=== PATIENT | female | born 1970 | race Caucasian/White ===

== ENCOUNTER 2018-10-12 18:33 | Inpatient (IN) | payer BC, OTHER ==
--- OUTSIDE RECORDS SUMMARY | 2018-10-12 18:35 | XMS REPORT ---
:1970 Author Organization [employer] Care Team Providers Name Role Phone Cathy, Thomas Provider Role Unavailable Allergies, Adverse Reactions, Alerts Substance Reaction Event Type N.K.D.A. Info Not Available Non Drug Allergy Problems Problem Type Condition Code Onset Dates Condition Status Assessment Mild intermittent asthma with acute J45.21 Active exacerbation Problem Loss of hair L65.9 Active Problem Seasonal allergic rhinitis, J30.2 Active unspecified trigger Assessment Seasonal allergic rhinitis, J30.2 Active unspecified trigger Problem Hematuria R31.9 Active Problem Fibromyalgia M79.7 Active Problem GERD (gastroesophageal reflux K21.9 Active disease) Problem Unspecified abnormal finding in R89.9 Active specimens from other organs, systems and tissues Problem Mild intermittent asthma with acute J45.21 Active exacerbation Problem Polyarthralgia M25.50 Active Problem Malaise and fatigue R53.81 Active Medications Medication Code Code Instructions Start End Status Dosage System Date Date Neurontin [facility] [address]-26 100 MG Orally Active 1 capsule Twice a day Acetaminophen- [facility] 44432007314 300-30 MG Active 1 tablet Codeine #3 Orally every 6 as needed hrs Cymbalta [facility] 97649803479 30 MG Orally Active 1 capsule Once a day Claritin-D 12 ND 85443289081 5-120 MG Orally December 11, January 10, Active 1 tablet Hour every 12 hrs 2017 2017 as needed ProAir [facility] 24312712849 108 (90 Base) December 11, Active 2 puffs as RespiClick MCG/ACT 2018 needed Inhalation every 6 hrs atarax NDC 0 25mg Po QID prn Active 1 Flonase ND 14154883768 50 MCG/ACT Active 1 spray in Nasally Once a each day nostril Levaquin ND 45926116668 250 MG Orally Active 2 tablets Once a day PredniSONE ND 95858836236 10 MG Orally December 11, December 16, Active 1 tablet bid 2017 2017 Results No Known Results Summary Purpose eClinicalWorks Submission
--- OUTSIDE RECORDS SUMMARY | 2018-10-12 18:36 | XMS REPORT ---
:1970 Author Organization [employer] Care Team Providers Name Role Phone Cathy, Thomas Provider Role Unavailable Allergies No Known Allergies Problems Problem Type Condition Code Onset Dates Condition Status Problem GERD (gastroesophageal reflux K21.9 Active disease) Problem Loss of hair L65.9 Active Problem Seasonal allergic rhinitis, J30.2 Active unspecified trigger Problem Body mass index (BMI) of 34.0-34.9 Z68.34 Active in adult Problem Intractable migraine without aura G43.019 Active and without status migrainosus Problem Sleep disturbance G47.9 Active Problem Unspecified abnormal finding in R89.9 Active specimens from other organs, systems and tissues Problem Mild intermittent asthma with acute J45.21 Active exacerbation Problem Seasonal allergies J30.2 Active Problem Seasonal allergic conjunctivitis H10.45 Active Assessment Fibromyalgia M79.7 Active Assessment Sleep disturbance G47.9 Active Assessment Body mass index (BMI) of 34.0-34.9 Z68.34 Active in adult Assessment Seasonal allergies J30.2 Active Problem Malaise and fatigue R53.81 Active Problem Polyarthralgia M25.50 Active Assessment Intractable migraine without aura G43.019 Active and without status migrainosus Problem Fibromyalgia M79.7 Active Problem Hematuria R31.9 Active Medications Medication Code Code Instructions Start End Status Dosage System Date Date Neurontin [facility] 45451855335 100 MG Orally February Active 1 capsule Twice a day 2017 Sumatriptan ND 54609320402 50 MG Orally March 01, Active 1 tablet Succinate Once a day 2018 as needed Flonase ND 48527165851 50 MCG/ACT Active 1 spray in Nasally Once a each day nostril ProAir [facility] 17438677980 108 (90 Base) December 11, Active 2 puffs as RespiClick MCG/ACT 2018 needed Inhalation every 6 hrs Montelukast ND 41639301635 10 MG Orally December 20, Active 1 tablet Sodium Once a day 2018 in the evening Lyrica ND 56523899537 100 MG Orally March 01, Active 1 capsule Twice a day 2017 Acetaminophen-C [facility] 13391272158 300-30 MG Active 1 tablet odeine #3 Orally every 6 as needed hrs Levaquin ND 57189340043 250 MG Orally February Active 2 tablets Once a day 2017 atarax ND 0 25mg Po QID prn Inactive 1 Fiorinal [facility] 78000795090 50-325-40 MG March 01Jun 29, Active 1 capsule Orally every 4 2017 2017 as needed hrs Cymbalta [facility] 46700069633 30 MG Orally Active 1 capsule Once a day Results No Known Results Summary Purpose eClinicalWorks Submission
--- OUTSIDE RECORDS SUMMARY | 2018-10-12 18:36 | XMS REPORT ---
:1970 Author Organization [employer] Care Team Providers Name Role Phone CathyThomas Provider Role Unavailable Allergies, Adverse Reactions, Alerts Substance Reaction Event Type N.K.D.A. 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21 Active exacerbation Problem Loss of hair L65.9 Active Problem Unspecified abnormal finding in R89.9 Active specimens from other organs, systems and tissues Problem Hematuria R31.9 Active Problem Malaise and fatigue R53.81 Active Medications Medication Code Code Instructions Start End Status Dosage System Date Date ProAir [facility] [id number] 108 (90 Base) December 11, Active 2 puffs as RespiClick MCG/ACT 2018 needed Inhalation every 6 hrs Cymbalta [facility] 92544638976 30 MG Orally Active 1 capsule Once a day Sumatriptan [facility] 73662196182 50 MG Orally March 01, Active 1 tablet Succinate Once a day 2018 as needed Fiorinal [facility] 00760851103 50-325-40 MG March 01, Jun 29, Active 1 capsule Orally every 4 2017 2018 as needed hrs Flonase [facility] 46778008955 50 MCG/ACT Active 1 spray in Nasally Once a each day nostril Acetaminophen-C [facility] 90392821782 300-30 MG Orally Active 1 tablet odeine #3 every 6 hrs as needed Lyrica [facility] 59677870829 100 MG Orally March 01, Active 1 capsule Twice a day 2017 Montelukast [facility] 66292464783 10 MG Orally December 20, Active 1 tablet Sodium Once a day 2018 in the evening Results No Known Results Summary Purpose eClinicalWorks Submission
--- OUTSIDE RECORDS SUMMARY | 2018-10-12 18:36 | XMS REPORT ---
:1970 Author Organization [employer]Works Care Team Providers Name Role Phone Thomas Morgan Provider Role Unavailable Allergies No Known Allergies Problems Problem Type Condition Code Onset Dates Condition Status Problem Loss of hair L65.9 Active Problem Seasonal allergic rhinitis, J30.2 Active unspecified trigger Problem Hematuria R31.9 Active Problem Fibromyalgia M79.7 Active Problem GERD (gastroesophageal reflux K21.9 Active disease) Problem Unspecified abnormal finding in R89.9 Active specimens from other organs, systems and tissues Problem Mild intermittent asthma with acute J45.21 Active exacerbation Problem Polyarthralgia M25.50 Active Problem Malaise and fatigue R53.81 Active Medications No Known Medications Results No Known Results Summary Purpose eClinicalWorks Submission
--- OUTSIDE RECORDS SUMMARY | 2018-10-12 18:36 | XMS REPORT ---
:1970 Author Organization [employer]Works Care Team Providers Name Role Phone Thomas Morgan Provider Role Unavailable Allergies, Adverse Reactions, Alerts Substance Reaction Event Type N.K.D.A. 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 Active Problem Insulin resistance E88.81 Active Problem Intractable migraine without aura G43.019 Active and without status migrainosus Problem Seasonal allergic conjunctivitis H10.45 Active Problem Seasonal allergic rhinitis, J30.2 Active unspecified trigger Assessment Fibromyalgia M79.7 Active Assessment History of gastric surgery Z98.890 Active Problem GERD (gastroesophageal reflux K21.9 Active disease) Problem Mild intermittent asthma with acute J45.21 Active exacerbation Problem Loss of hair L65.9 Active Problem Unspecified abnormal finding in R89.9 Active specimens from other organs, systems and tissues Problem Hematuria R31.9 Active Problem Malaise and fatigue R53.81 Active Medications Medication Code Code Instructions Start End Status Dosage System Date Date Sumatriptan ND 51412156369 50 MG Orally March 01, Active 1 tablet as Succinate Once a day 2018 needed ProAir ND 15694672948 108 (90 Base) December 11, Active 2 puffs as RespiClick MCG/ACT 2018 needed Inhalation every 6 hrs Fluconazole NDC 14583483373 150 MG Orally Oct 02, Oct 03, Active 1 tablet Once a day 2018 2019 Lyrica ND 86835109604 100 Active TAKE 1 CAPSULE BY MOUTH TWICE DAILY Bariatric ND 87371348836 - Orally Sep 18, Active as directed Multivitamins/I 2019 cornelio Flonase ND 57741463357 50 MCG/ACT Active 1 spray in Nasally Once a each day nostril Cymbalta [facility] 92058947483 30 MG Orally Active 3 capsules Once a day Lyrica [facility] 10313013475 100 MG Orally March 01, Active 1 capsule Twice a day 2017 Acetaminophen-C [facility] 45072726919 300-30 MG Active 1 tablet as odeine #3 Orally every 6 needed hrs Montelukast [facility] 34074980359 10 MG Orally December 20, Active 1 tablet in Sodium Once a day 2017 the evening Results No Known Results Summary Purpose eClinicalWorks Submission
--- OUTSIDE RECORDS SUMMARY | 2018-10-12 18:36 | XMS REPORT ---
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 Active Problem Insulin resistance E88.81 Active Problem Intractable migraine without aura G43.019 Active and without status migrainosus Problem Seasonal allergic conjunctivitis H10.45 Active Problem Seasonal allergic rhinitis, J30.2 Active unspecified trigger Assessment Fibromyalgia M79.7 Active Problem GERD (gastroesophageal reflux K21.9 Active disease) Problem Mild intermittent asthma with acute J45.21 Active exacerbation Problem Loss of hair L65.9 Active Problem Unspecified abnormal finding in R89.9 Active specimens from other organs, systems and tissues Problem Hematuria R31.9 Active Problem Malaise and fatigue R53.81 Active Medications Medication Code System Code Instructions Start End Date Status Dosage Date Cymbalta [facility] 62646382002 30 MG Orally Active 3 capsules Once a day Results No Known Results Summary Purpose eClinicalWorks Submission
--- OUTSIDE RECORDS SUMMARY | 2018-10-12 18:36 | XMS REPORT ---
:1970 Author Organization e[employer]Works Care Team Providers Name Role Phone Thomas Morgan Provider Role Unavailable Allergies No Known Allergies Problems Problem Type Condition Code Onset Dates Condition Status Problem Mild intermittent asthma with acute J45.21 Active exacerbation Problem Malaise and fatigue R53.81 Active Problem Unspecified abnormal finding in R89.9 Active specimens from other organs, systems and tissues Assessment Seasonal allergic rhinitis, J30.2 Active unspecified trigger Problem Loss of hair L65.9 Active Problem Seasonal allergic rhinitis, J30.2 Active unspecified trigger Problem Seasonal allergic conjunctivitis H10.45 Active Problem Fibromyalgia M79.7 Active Problem Polyarthralgia M25.50 Active Problem GERD (gastroesophageal reflux K21.9 Active disease) Problem Hematuria R31.9 Active Medications Medication Code Code Instructions Start End Status Dosage System Date Date ProAir [facility] 48501436392 108 (90 Base) December 11, Active 2 puffs as RespiClick MCG/ACT 2018 needed Inhalation every 6 hrs Montelukast ND 69859554348 10 MG Orally December 20, Active 1 tablet Sodium Once a day 2017 in the evening Cymbalta ND 49711954335 30 MG Orally Active 1 capsule Once a day Levaquin ND 98713717164 250 MG Orally Active 2 tablets Once a day Flonase ND 68549205578 50 MCG/ACT Active 1 spray in Nasally Once a each day nostril Acetaminophen-C ND 58574772135 300-30 MG Orally Active 1 tablet odeine #3 every 6 hrs as needed atarax NDC 0 25mg Po QID prn Active 1 Neurontin ND 68398887092 100 MG Orally Active 1 capsule Twice a day Claritin-D 12 ND 83059541327 5-120 MG Orally December 11, January 10, Active 1 tablet Hour every 12 hrs 2017 2017 as needed Results No Known Results Summary Purpose eClinicalWorks Submission
[2018-10-12 19:17] LABS: Absolute Lymphocytes (CBC) 2.3 K/uL (0.7-4.9); Absolute Neutrophil 6.5 K/uL (1.8-8.0); Eosinophils % 2.4 % (0-4.4); Hematocrit 40.1 % (36.0-45.0); Lymphocytes % 22.9 % (15.3-44.8); MPV 8.3 fL (7.6-11.3); Monocytes % 9.6 % (3.3-12.3)
[2018-10-12 19:18] LABS: Protime INR 1.21
[2018-10-12 19:37] LABS: ALT/SGPT 24 U/L (12-78); AST/SGOT 15 U/L (15-37); Albumin 3.7 g/dL (3.4-5.0); Alkaline Phosphatase 79 U/L (45-117); BUN Blood Urea Nitrogen 11 mg/dL (7-18); Bicarbonate 24 mmol/L (21-32); Bilirubin Direct 0.1 mg/dL (0-0.2); Bilirubin Total 0.4 mg/dL (0.2-1.0); Glucose Level 95 mg/dL (74-106); Magnesium 2.2 mg/dL (1.8-2.4); NT PRO-BNP 45 pg/mL (<125); Potassium 3.7 mmol/L (3.5-5.1); Protein, Total 7.8 g/dL (6.4-8.2); Sodium Level 141 mmol/L (136-145); Troponin (Emerg Dept Use Only) < 0.02 ng/mL (0.0-0.045)
[2018-10-12] MEDS ORDERED: ONDANSETRON 4 MG/2 ML VIAL ONE (19:39)
--- NOTE | 2018-10-12 20:24 | RAD REPORT ---
EXAM DESCRIPTION: Bethanie Single View10/12/2018 7:57 pm CLINICAL HISTORY: Abdominal pain COMPARISON: April 2018 FINDINGS: The lungs appear clear of acute infiltrate. The heart is normal size IMPRESSION: No acute abnormalities displayed
[2018-10-12 20:59] LABS: Urine Blood 1+ (NEG); Urine Glucose NEGATIVE (NEG); Urine Protein NEGATIVE (NEG); Urine Specific Gravity 1.015 (1.005-1.030)
--- NOTE | 2018-10-12 22:27 | EDPHYS ---
Physician Documentation [facility] Name: Mary Lou Schilling Age: 48 yrs Sex: Female : 1970 Arrival Date: 10/12/2018 Time: 18:36 Bed 20 Private MD: Thomas Morgan ED Physician Joelle Morelos HPI: 10/12 21:49 This 48 yrs old Female presents to ER via Ambulatory with complaints of Upper pm1 Abd Pain, Left Shoulder Pain. 21:49 The patient presents with abdominal pain in the epigastric area. Onset: The pm1 symptoms/episode began/occurred 2 day(s) ago. The symptoms do not radiate. Associated signs and symptoms: Pertinent negatives: nausea, vomiting, and diarrhea, chest pain, constipation, dysuria, fever, shortness of breath. The symptoms are described as crampy. Modifying factors: The symptoms are alleviated by nothing, the symptoms are aggravated by food. The patient has not experienced similar symptoms in the past. The patient has been recently seen by a physician: 3 week(s) ago, Had gastric sleeve placement in [place]. 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 - Social history:: Smoking status: Patient/guardian denies using tobacco. - Ebola Screening: : Patient negative for fever greater than or equal to 101.5 degrees Fahrenheit, and additional compatible Ebola Virus Disease symptoms Patient denies exposure to infectious person Patient denies travel to an Ebola-affected area in the 21 days before illness onset No symptoms or risks identified at this time. ROS: 21:49 Constitutional: Negative for fever, chills, and weight loss, Eyes: Negative for injury, pm1 pain, redness, and discharge, ENT: Negative for injury, pain, and discharge, Neck: Negative for injury, pain, and swelling, Cardiovascular: Negative for chest pain, palpitations, and edema, Respiratory: Negative for shortness of breath, cough, wheezing, and pleuritic chest pain. 21:49 Back: Negative for injury and pain, : Negative for injury, bleeding, discharge, and swelling, MS/Extremity: Negative for injury and deformity, Skin: Negative for injury, rash, and discoloration, Neuro: Negative for headache, weakness, numbness, tingling, and seizure. 21:49 Abdomen/GI: Positive for abdominal pain, Negative for nausea, vomiting, and diarrhea. 21:49 MS/extremity: Positive for pain, of the left scapular area. pm1 Exam: 21:49 Constitutional: This is a well developed, well nourished patient who is awake, alert, pm1 and in no acute distress. Head/Face: Normocephalic, atraumatic. Eyes: Pupils equal round and reactive to light, extra-ocular motions intact. Lids and lashes normal. Conjunctiva and sclera are non-icteric and not injected. Cornea within normal limits. Periorbital areas with no swelling, redness, or edema. ENT: Nares patent. No nasal discharge, no septal abnormalities noted. Tympanic membranes are normal and external auditory canals are clear. Oropharynx with no redness, swelling, or masses, exudates, or evidence of obstruction, uvula midline. Mucous membranes moist. Neck: Trachea midline, no thyromegaly or masses palpated, and no cervical lymphadenopathy. Supple, full range of motion without nuchal rigidity, or vertebral point tenderness. No Meningismus. Chest/axilla: Normal chest wall appearance and motion. Nontender with no deformity. No lesions are appreciated. Cardiovascular: Regular rate and rhythm with a normal S1 and S2. No gallops, murmurs, or rubs. Normal PMI, no JVD. No pulse deficits. Respiratory: Lungs have equal breath sounds bilaterally, clear to auscultation and percussion. No rales, rhonchi or wheezes noted. No increased work of breathing, no retractions or nasal flaring. Abdomen/GI: Soft, non-tender, with normal bowel sounds. No distension or tympany. No guarding or rebound. No evidence of tenderness throughout. Back: No spinal tenderness. No costovertebral tenderness. Full range of motion. Skin: Warm, dry with normal turgor. Normal color with no rashes, no lesions, and no evidence of cellulitis. MS/ Extremity: Pulses equal, no cyanosis. Neurovascular intact. Full, normal range of motion. 21:49 Neuro: Orientation: is normal, Motor: is normal, moves all fours, Sensation: is normal, no obvious gross deficits, Gait: is steady, at a normal pace, without difficulty. Vital Signs: 19:04 Weight 79.38 kg; Height 5 ft. 5 in. (165.10 cm); bp 19:15 BP 138 / 85; Pulse 100; Resp 17; Temp 98.6; Pulse Ox 99% ; Pain 7/10; rr5 19:45 BP 115 / 64; Pulse 94; Resp 16; Temp 98.6; Pulse Ox 99% ; rr5 20:35 BP 96 / 52; Pulse 90; Resp 16; Pulse Ox 100% ; rr5 21:50 BP 116 / 68; Pulse 93; Resp 19; Pulse Ox 99% ; rr5 22:25 BP 122 / 70; Pulse 99; Resp 16; Pulse Ox 99% ; rr5 23:55 BP 125 / 62; Pulse 98; Resp 17; Pulse Ox 100% ; rr5 19:04 Body Mass Index 29.12 (79.38 kg, 165.10 cm) bp MDM: 18:42 Patient medically screened. pm1 21:52 Data reviewed: vital signs. Data interpreted: Pulse oximetry: on room air is 99 %. pm1 Interpretation: normal. 22:28 Physician consultation: Eligio Hays MD was called at 22:20, was contacted at 22:20, pm1 regarding consult, patient's condition, after a discussion of the case, a recommendation for transfer for higher level of care is made, recommends transfer to bariatric surgeon. Intramural hematoma is postoperative complication that requires evaluation by bariatric surgeon. 22:54 Physician consultation: Bariatric Surgeon St. Gwen Kirby was contacted at pm1 22:54, regarding regarding transfer, consult, patient's condition, She said a transfer is not needed and management would be conservative. No surgery, drainage, or stenting would be performed. The hematoma will resolve on its own with NPO, bowel rest, and TPN. 23:00 Physician consultation: Eligio Hays MD was called at 23:00, was contacted at 23:00, pm1 regarding consult, Dr. Kirby said the following: transfer is not needed and management would be conservative; No surgery, drainage, or stenting would be performed; It will resolve on its own with NPO, Bowel Rest, and TPN.. 23:08 Physician consultation: Thomas Morgan MD was called at 23:03, was contacted at 23:08, pm1 regarding admission, patient's condition, and will see patient tomorrow, D5 1/2 NS, Protonix PO, Oral vitamins. Discussed orders from Dr. Hays and wants to hold order for PICC Line and TPN Consult. 10/12 18:48 Order name: Basic Metabolic Panel; Complete Time: 19:56 pm1 10/12 18:48 Order name: CBC with Diff; Complete Time: 19:20 pm1 10/12 18:48 Order name: LFT's; Complete Time: 19:56 pm1 10/12 18:48 Order name: Magnesium; Complete Time: 19:56 pm1 10/12 18:48 Order name: NT PRO-BNP; Complete Time: 19:56 pm1 10/12 18:48 Order name: PT-INR; Complete Time: 19:20 pm1 10/12 18:48 Order name: Troponin (emerg Dept Use Only); Complete Time: 19:56 pm1 10/12 18:48 Order name: XRAY Chest (1 view); Complete Time: 20:38 pm1 10/12 18:48 Order name: EKG; Complete Time: 18:49 pm1 10/12 18:48 Order name: CT Abd/Pelvis - W/Contrast: PO and IV contrast pm1 10/12 19:38 Order name: Urine Dipstick--Ancillary (enter results); Complete Time: 20:59 ar5 10/12 19:38 Order name: Urine --Ancillary (enter results); Complete Time: 20:59 ar5 10/12 18:48 Order name: Cardiac monitoring; Complete Time: 19:16 pm1 10/12 18:48 Order name: EKG - Nurse/Tech; Complete Time: 19:16 pm1 10/12 18:48 Order name: IV Saline Lock; Complete Time: 19:16 pm1 10/12 18:48 Order name: Labs collected and sent; Complete Time: 19:16 pm1 10/12 18:48 Order name: O2 Per Protocol; Complete Time: 19:16 pm1 10/12 18:48 Order name: O2 Sat Monitoring; Complete Time: 19:16 pm1 10/12 18:48 Order name: Urine Dipstick-Ancillary (obtain specimen); Complete Time: 19:25 pm1 10/12 18:48 Order name: Urine Test (obtain specimen); Complete Time: 19:25 pm1 Administered Medications: 19:30 Drug: Zofran 4 mg Route: IVP; Site: right antecubital; rr5 10/13 00:20 Follow up: Response: No adverse reaction rr5 10/12 23:55 Drug: morphine 4 mg Route: IVP; Site: right antecubital; rr5 10/13 00:19 Follow up: Response: No adverse reaction rr5 Disposition: 10/12/18 23:15 Hospitalization ordered by Thomas Morgan for Inpatient Admission. Preliminary diagnosis is Intramural hematoma of stomach post gastric sleeve surgery. - Bed requested for Telemetry/MedSurg (Inpatient). - Status is Inpatient Admission. rr5 - Condition is Stable. - Problem is new. - Symptoms have improved. UTI on Admission? No Addendum: 10/14/2018 07:30 Co-signature as Attending Physician, Joelle Morelos MD. m a2 Signatures: Dispatcher [employer] EDMS Lily العراقي RN RN fc Aditya Vaz, CONTRACT PROGRAMMER CONTRACT PROGRAMMER pm1 Remy Washburn RN RN bp Joelle Morelos MD MD ma2 Ghassan Garsia RN RN rr5 Corrections: (The following items were deleted from the chart) 10/12 21:52 21:49 Back: Negative for injury and pain, : Negative for injury, bleeding, discharge, pm1 and swelling, MS/Extremity: Negative for injury and deformity, Skin: Negative for injury, rash, and discoloration, Neuro: Negative for headache, weakness, numbness, tingling, and seizure, pm1 23:14 22:27 10/12/2018 22:[address] [facility]. Diagnosis is pm1 Intramural hematoma of stomach post gastric sleeve surgery. Reason for transfer: Higher level of care. Accepting physician is [facility] . Condition is Stable. Problem is new. Symptoms have improved. pm1 23:51 23:15 Hospitalization Ordered by Thomas Morgan MD for Inpatient Admission. Preliminary fc diagnosis is Intramural hematoma of stomach post gastric sleeve surgery. Bed requested for Telemetry/MedSurg (Inpatient). Status is Inpatient Admission. Condition is Stable. Problem is new. Symptoms have improved. UTI on Admission? No. pm1 10/13 00:19 10/12 23:51 10/12/2018 23:15 Hospitalization Ordered by Thomas Morgan MD for Inpatient rr5 Admission. Preliminary diagnosis is Intramural hematoma of stomach post gastric sleeve surgery. Bed requested for Telemetry/MedSurg (Inpatient). Status is Inpatient Admission. Condition is Stable. Problem is new. Symptoms have improved. UTI on Admission? No. fc
--- NOTE | 2018-10-12 22:27 | ER ---
Nurse's Notes [facility] Name: Mary Lou Schilling Age: 48 yrs Sex: Female : 1970 Arrival Date: 10/12/2018 Time: 18:36 Bed 20 Private MD: Thomas Morgan Diagnosis: Intramural hematoma of stomach post gastric sleeve surgery Presentation: 10/12 19:03 Presenting complaint: Patient states: BILATERAL SHOULDER PAIN RADIATING TO EPIGASTRIC. bp Transition of care: patient was not received from another setting of care. Onset of symptoms is unknown. Risk Assessment: Do you want to hurt yourself or someone else? Patient reports no desire to harm self or others. Initial Sepsis Screen: Does the patient meet any 2 criteria? No. Patient's initial sepsis screen is negative. Does the patient have a suspected source of infection? No. Patient's initial sepsis screen is negative. Care prior to arrival: None. 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 - Social history:: Smoking status: Patient/guardian denies using tobacco. - Ebola Screening: : Patient negative for fever greater than or equal to 101.5 degrees Fahrenheit, and additional compatible Ebola Virus Disease symptoms Patient denies exposure to infectious person Patient denies travel to an Ebola-affected area in the 21 days before illness onset No symptoms or risks identified at this time. Screenin:17 Abuse screen: Denies threats or abuse. Denies injuries from another. Nutritional rr5 screening: No deficits noted. Tuberculosis screening: No symptoms or risk factors identified. Fall Risk IV access (20 points). Total Robb Fall Scale indicates No Risk (0-24 pts). Assessment: 19:15 General: Appears in no apparent distress. uncomfortable, Behavior is calm, cooperative, rr5 appropriate for age. Pain: Complains of pain in upper abdomen and shoulder Pain does not radiate. Pain currently is 7 out of 10 on a pain scale. Quality of pain is described as aching, Pain began gradually, Is intermittent. Neuro: Level of Consciousness is awake, alert, obeys commands, Oriented to person, place, time, situation, Appropriate for age. Cardiovascular: Capillary refill < 3 seconds Patient's skin is warm and dry. Respiratory: Airway is patent Respiratory effort is even, unlabored, Respiratory pattern is regular, symmetrical. GI: Abdomen is round post operation gastric sleeve beverly noted Reports upper abdominal pain. : No signs and/or symptoms were reported regarding the genitourinary system. EENT: No signs and/or symptoms were reported regarding the EENT system. Derm: Skin is intact, Skin temperature is warm. Musculoskeletal: Capillary refill < 3 seconds, Reports pain in shoulder. 20:20 Reassessment: Patient appears in no apparent distress at this time. No changes from rr5 previously documented assessment. Patient is alert, oriented x 3, equal unlabored respirations, skin warm/dry/pink. awaiting for CT procedure. 21:50 Reassessment: Patient appears in no apparent distress at this time. Patient is alert, rr5 oriented x 3, equal unlabored respirations, skin warm/dry/pink. awaiting for CT scan result. 22:25 Reassessment: Patient appears in no apparent distress at this time. Patient is alert, rr5 oriented x 3, equal unlabored respirations, skin warm/dry/pink. ED provider explained the plan, patient agreed for transfer. Vital Signs: 19:04 Weight 79.38 kg; Height 5 ft. 5 in. (165.10 cm); bp 19:15 BP 138 / 85; Pulse 100; Resp 17; Temp 98.6; Pulse Ox 99% ; Pain 7/10; rr5 19:45 BP 115 / 64; Pulse 94; Resp 16; Temp 98.6; Pulse Ox 99% ; rr5 20:35 BP 96 / 52; Pulse 90; Resp 16; Pulse Ox 100% ; rr5 21:50 BP 116 / 68; Pulse 93; Resp 19; Pulse Ox 99% ; rr5 22:25 BP 122 / 70; Pulse 99; Resp 16; Pulse Ox 99% ; rr5 23:55 BP 125 / 62; Pulse 98; Resp 17; Pulse Ox 100% ; rr5 19:04 Body Mass Index 29.12 (79.38 kg, 165.10 cm) bp ED Course: 18:36 Patient arrived in ED. rg4 18:37 Thomas Morgan MD is Private Physician. rg4 18:42 Aditya Vaz NP is [facility]. pm1 18:42 Joelle Morelos MD is Attending Physician. pm1 19:04 Triage completed. bp 19:04 Arm band placed on. bp 19:08 Ghassan Garsia RN is Primary Nurse. rr5 19:13 Initial lab(s) drawn, by me, sent to lab. EKG done, by ED staff, reviewed by Aditya Vaz NP. Inserted saline lock: 22 gauge in right antecubital area, using aseptic technique. Blood collected. 19:15 Patient has correct armband on for positive identification. Placed in gown. Bed in low rr5 position. Call light in reach. court monitor on. Pulse ox on. NIBP on. 19:15 Warm blanket given. Head of bed elevated. rr5 19:39 X-ray completed. Portable x-ray completed in exam room. Patient tolerated procedure la2 well. 19:57 XRAY Chest (1 view) In Process Unspecified. EDMS 21:47 CT Abd/Pelvis - W/Contrast: PO and IV contrast In Process Unspecified. EDMS 23:14 Thomas Morgan MD is Hospitalizing Provider. pm1 23:56 Awaiting bed assignment. rr5 23:56 No provider procedures requiring assistance completed. Patient admitted, IV remains in rr5 place. intact, No redness/swelling at site. Administered Medications: 19:30 Drug: Zofran 4 mg Route: IVP; Site: right antecubital; rr5 10/13 00:20 Follow up: Response: No adverse reaction rr5 10/12 23:55 Drug: morphine 4 mg Route: IVP; Site: right antecubital; rr5 10/13 00:19 Follow up: Response: No adverse reaction rr5 Outcome: 10/12 22:27 ER care complete, transfer ordered by . pm1 23:15 Decision to Hospitalize by Provider. pm1 23:56 Admitted to rr5 23:56 Condition: stable 23:56 Instructed on the need for admit. 10/13 00:04 Admitted to Tele accompanied by tech, via wheelchair, room 420, with chart, Report rr5 called to josué BULLOCK 00:19 Patient left the ED. rr5 Signatures: Dispatcher [employer] EDTheo Stout jb1 Aditya Vaz, AUDIO VISUAL COLLECTIONS COORDINATOR AUDIO VISUAL COLLECTIONS COORDINATOR [email or web address] Racquel Meadows4 Sigrid Groves Brian, RN RN bp Ghassan Garsia RN RN rr5
[2018-10-12] MEDS ORDERED: MORPHINE 4 MG/ML SYR ONE (23:58)
[2018-10-13] MEDS ORDERED: ONDANSETRON 4 MG/2 ML VIAL IV PRN (00:25)
[2018-10-13] MEDS: D5 0.45 NS 1,000 ML IV SCH ×4 (00:33→20:00)
[2018-10-13 01:37] VITALS: O2SAT 95; BMI 32.5
[2018-10-13] MEDS: MORPHINE 4 MG/ML SYR IV PRN ×2 (03:54→12:00)
[2018-10-13 05:44] LABS: Absolute Lymphocytes (CBC) 2.1 K/uL (0.7-4.9); Absolute Neutrophil 7.4 K/uL (1.8-8.0); Basophils % 0.5 % (0-1.3); Hematocrit 38.5 % (36.0-45.0); Lymphocytes % 19.7 % (15.3-44.8); MPV 8.6 fL (7.6-11.3); Monocytes % 9.6 % (3.3-12.3)
[2018-10-13] MEDS: PANTOPRAZOLE 40MG TABLET PO SCH (05:46)
[2018-10-13 05:59] LABS: ALT/SGPT 21 U/L (12-78); AST/SGOT 12 U/L (15-37); Albumin 3.3 g/dL (3.4-5.0); Alkaline Phosphatase 82 U/L (45-117); BUN Blood Urea Nitrogen 8 mg/dL (7-18); Bicarbonate 24 mmol/L (21-32); Bilirubin Direct 0.1 mg/dL (0-0.2); Bilirubin Total 0.5 mg/dL (0.2-1.0); Glucose Level 126 mg/dL (74-106); Lipase 64 U/L (73-393); Potassium 3.9 mmol/L (3.5-5.1); Protein, Total 7.2 g/dL (6.4-8.2); Sodium Level 140 mmol/L (136-145)
[2018-10-13 06:04] LABS: Urine Appearance CLEAR; Urine Bilirubin NEGATIVE (NEG); Urine Blood 1+ (NEG); Urine Color YELLOW; Urine Glucose NEGATIVE (NEG); Urine Microscopic Reflex ORDER UMIC; Urine Protein NEGATIVE (NEG); Urine Specific Gravity >=1.030 (1.005-1.030); Urine Urobilinogen 0.2 mg/dL (0.2-1.0)
[2018-10-13 06:12] LABS: Urine Bacteria <20 /HPF (<20); Urine Culture Reflex Order NOT NEEDED
[2018-10-13] MEDS: CALCIUM CARBONATE 500 MG TAB PO SCH (11:50)
--- NOTE | 2018-10-13 12:11 | CON ---
Date of Consultation: 10/13/2018 Brief History Of Present Illness: The patient is a 48-year-old female, who presented to the hospital with complaints of abdominal and shoulder pain. She states that she had a sleeve gastrecto my in [place] by Dr. Tomlin approximately 3 weeks ago. She had some pain after surgery, but ultima tely improved somewhat. Approximately 2 days ago, however, she ate some green beans and feels at noelle t moment she developed worsening abdominal pain radiating through her chest and into her back. She h ad this similar before, it was more of a gas type pain, but was unrelenting at that point and progres sively worse. As such, she came to the hospital with the above-stated complaints. There was no othe r aggravating or alleviating factors. No similar episodes. No sick contacts. Travelled to [place] a s described above 3 weeks ago approximately. She continues to have a bowel movement once every 3 day s. This is described as nonbloody. There is no nausea or emesis at this time. Past Medical History: Significant for fibromyalgia. Past Surgical History: Cholecystectomy, right wrist surgery, 3 nose surgeries for polyp removal, and the sleeve gastrectomy as described above. Allergies: NO KNOWN DRUG ALLERGIES. Home Medications: Include only multivitamins by her description. Family History: Noncontributory. Social History: She is a 1 pack per day history, times over 20 years. She continues to smoke. She denies alcohol or recreational drug use. 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 Review of Systems: A 10-point review of systems other than HPI, denies. Physical Examination: Vital Signs: At the time of my examination, her BMI is 32.6, her blood pressure is 114/57, pulse is 94, respiratory rate 18, temperature 98.3. General: She is awake, alert, and oriented. Psychiatric: She has a flat affect, but otherwise is appropriate and conversive. HEENT: Normocephalic. Her sclerae are anicteric. Her mucous membranes are moist. Her oropharynx i s clear. Neck: Supple. There is no JVD. Chest: Normal expansion and excursion. Abdomen: Soft. Mild epigastric and left upper quadrant tenderness to palpation. Nondistended. The re are surgical scars evident. They are healing very slowly and they have not healed as would be ant icipated at this point. The remainder of the abdominal exam is essentially benign. These were lapar oscopic scars. Extremities: No clubbing, cyanosis, or edema. Skin: Warm and dry. Laboratory Data: Her white blood cell count is 10.8, hemoglobin is 13.3, hematocrit is 38.5, platele t count is 211. Neutrophils are normal at 68%. Her PT 14.2, INR 1.21. Chemistry shows a sodium of 140, potassium 3.9, chloride 110, carbon dioxide 24, BUN 8, creatinine 0.5, glucose is 126, lactic ac id 0.6, magnesium is 2.2 on admission, total bilirubin 0.5, direct component 0.1, AST is 12, ALT 21, alkaline phosphatase is 82. Her lipase was 64. She had a CT scan performed of the abdomen and pelvi s, which shows a 5.2 cm mural thickening along the left lateral aspect of the stomach along the recen t staple line consistent with an intramural hematoma. Specifically, it says there is evidence of gas tric sleeve procedure. There is mural thickening with decreased attenuation along the left lateral p roximal portion of the stomach. This is suspicious for intramural hematoma measuring 5.2 x 1.5 x 2.7 cm in maximal AP, transverse, and longitudinal dimensions respectively. She had a chest x-ray perfo rmed as well, which is officially normal with no acute abnormalities displayed. Assessment And Plan: This is a 48-year-old female, who presents with signs and symptoms of an intram ural hematoma from recent sleeve gastrectomy. 1.IV fluid hydration. 2.PICC line placement. 3.TPN for 3-4 weeks. 4.Serial abdominal exams. 5.Continue n.p.o. during this interval. Continue medical management per Dr. Morgan. Thank you for this consult. JEFE/DAVIS Voice ID: [id number] Report ID: [id number]
--- NOTE | 2018-10-13 13:17 | P.HP ---
Certification for Inpatient Patient admitted to: Observation With expected LOS: <2 Midnights Patient will require the following post-hospital care: None Practitioner: I am a practitioner with admitting privileges, knowledge of patient current condition, hospital course, and medical plan of care. Services: Services provided to patient in accordance with Admission requirements found in Title 42 Section 412.3 of the Code of Federal Regulations Patient History Date of Service: 10/13/18 Primary Care Provider: Cathy Reason for admission: complication of gastric History of Present Illness: Patient in my office. She recently went to [facility] [place] and had a gastric sleeve. She has continued to smoke during this time approx 15 cig a day. She comes to the hospital with 3 days of epigastric pain. The patient had a ct which showed a hematoma. Bariatric surgeon in [place] suggested tpn for 3-4 weeks. She has not had any nausea or vomiting. Pain while moving approx 7/10. Allergies No Known Allergies Allergy (Unverified 10/12/18 23:59) Home Medications: Calcium Citrate 200 mg PO DAILY 10/13/18 L.acidoph,Paracasei, B.lactis [Probiotic] 1 each PO DAILY 10/13/18 Omeprazole [Prilosec] 40 mg PO DAILY 10/13/18 - Past Medical/Surgical History Has patient received pneumonia vaccine in the past: Yes Diabetic: No -: Gastric Sleeve - Family History Mother -: Heart disease Father -: Heart disease - Social History Smoking Status: Current every day smoker Alcohol use: No CD- Drugs: No Caffeine use: No Place of Residence: Home Review of Systems 10-point ROS is otherwise unremarkable Gastrointestinal: Abdominal Pain (epigastric pain) Physical Examination - Vital Signs Temperature: 98.6 F Blood Pressure: 126/58 Pulse: 100 Respirations: 18 Pulse Ox (%): 96 - Physical Exam General: Alert, In no apparent distress HEENT: Atraumatic, PERRLA, Mucous membr. moist/pink, EOMI, Sclerae nonicteric Neck: Supple, 2+ carotid pulse no bruit, No LAD, Without JVD or thyroid abnormality Respiratory: Clear to auscultation bilaterally, Normal air movement Cardiovascular: Regular rate/rhythm, Normal S1 S2 Gastrointestinal: Normal bowel sounds, No tenderness Musculoskeletal: No tenderness Integumentary: No rashes Neurological: Normal gait, Normal speech, Normal strength at 5/5 x4 extr, Normal tone, Normal affect Lymphatics: No axilla or inguinal lymphadenopathy - Studies Laboratory Data (last 24 hrs) 10/12/18 19:05: PT 14.2 H, INR 1.21 10/12/18 19:05: WBC 10.2, Hgb 14.0, Hct 40.1, Plt Count 218 10/12/18 19:05: Sodium 141, Potassium 3.7, BUN 11, Creatinine 0.62, Glucose 95, Magnesium 2.2, Total Bilirubin 0.4, AST 15, ALT 24, Alkaline Phosphatase 79 Assessment and Plan - Problems (Diagnosis) (1) Postoperative epigastric abdominal pain Current Visit: Yes Status: Acute Plan: Patient is not too keen about tpn. Will keep her npo for another day. Start her on clear liquid diet, ppi and regular bismuth. If she tolerates this will keep her on a liquid diet for a month or more. Slowly advance diet. However the most important factor is smoking cessation. If she does not tolerated her liquid diet. Will have to default to TPN (2) Bariatric surgery status Current Visit: Yes Status: Acute Plan: Had this at the begining of Sep. She was on a solid diet. She denies, alcohol or caffeine. She has been smoking (3) Tobacco abuse counseling Current Visit: Yes Status: Acute Plan: Patient needs to stop cold turkey. If she continues to smoke. TPN or no will be ineffective. Have discussed with her and her spouse. Will start her on a nicotine patch and possible buproprion in the morning. Discharge Plan: Home Plan to discharge in: 24 Hours - Advance Directives Does patient have a Living Will: No Does patient have a Durable POA for Healthcare: No - Code Status/Comfort Care Code Status Assessed: No Code Status: Full Code Physician Review: Patient Assessed, Agree with Above Assessment and Plan Critical Care: No Time Spent Managing Pts Care (In Minutes): 50
[2018-10-13] MEDS: BISMUTH SUBSALICYL 262MG/15ML-240 ML BTL PO SCH ×2 (14:44→20:00)
[2018-10-13] MEDS: NICOTINE 21 MG/PAT TD SCH (15:05)
[2018-10-13] MEDS: ENOXAPARIN 40 MG/0.4 ML SQ SCH (16:07)
[2018-10-14] MEDS: BISMUTH SUBSALICYL 262MG/15ML-240 ML BTL PO SCH ×4 (01:49→20:00)
[2018-10-14] MEDS: MORPHINE 2 MG/ML SYR IV PRN ×2 (01:49→19:59)
[2018-10-14] MEDS: PANTOPRAZOLE 40MG TABLET PO SCH (05:47)
[2018-10-14] MEDS: THIAMINE HCL 100 MG TABLET PO SCH (07:59)
[2018-10-14] MEDS: CALCIUM CARBONATE 500 MG TAB PO SCH (07:59)
[2018-10-14] MEDS: LACTOBACILLUS/ACIDOPHILUS TAB PO SCH (07:59)
[2018-10-14] MEDS: MULTIVITAMIN TAB PO SCH (07:59)
[2018-10-14] MEDS: NICOTINE 21 MG/PAT TD SCH (09:00)
--- NOTE | 2018-10-14 09:16 | EKG ---
Test Date: 2018-10-12 Test Time: 18:56:24 National Secretary: WILMAR MEASUREMENT RESULTS: Intervals: Rate: 91 MS: 128 QRSD: 78 QT: 336 QTc: 413 [place]: P: 59 MS: 128 QRS: 64 T: 49 INTERPRETIVE STATEMENTS: Normal sinus rhythm Normal ECG Compared to ECG 03/12/2012 15:46:49 No significant changes Electronically Signed On 10-14-18 09:15:42 FLAT CLOTHIER by Angel Cazares
[2018-10-14] MEDS: D5 0.45 NS 1,000 ML IV SCH ×3 (10:03→19:59)
--- NOTE | 2018-10-14 10:56 | P.PN ---
Subjective Date of Service: 10/14/18 Primary Care Provider: Cathy Chief Complaint: complication of gastric Subjective: No new changes Review of Systems 10-point ROS is otherwise unremarkable Physical Examination - Vital Signs Temperature: 97.8 F Blood Pressure: 103/58 Pulse: 92 Respirations: 16 Pulse Ox (%): 95 - Physical Exam General: Alert, In no apparent distress HEENT: Atraumatic, PERRLA, EOMI Neck: Supple, JVD not distended Respiratory: Clear to auscultation bilaterally, Normal air movement Cardiovascular: Regular rate/rhythm, Normal S1 S2 Gastrointestinal: Normal bowel sounds, No tenderness Musculoskeletal: No tenderness Integumentary: No rashes Neurological: Normal speech, Normal tone, Normal affect Lymphatics: No axilla or inguinal lymphadenopathy Assessment & Plan - Problems (Diagnosis) (1) Postoperative epigastric abdominal pain Onset Date: 10/14/18 Current Visit: Yes Status: Acute Plan: Have discussed the patient with Dr. Hays. She is high risk. He is worried about healing and protien. Therefore will order 4 weeks of tpn. The patient has been non compliant in the past. So it is likely she will have complications. Therefore will order this (2) Bariatric surgery status Onset Date: 10/14/18 Current Visit: Yes Status: Chronic Plan: Had this at the begining of Sep. She was on a solid diet. She denies, alcohol or caffeine. She has been smoking (3) Tobacco abuse counseling Onset Date: 10/14/18 Current Visit: Yes Status: Chronic Plan: Patient needs to stop cold turkey. If she continues to smoke. TPN or no will be ineffective. Have discussed with her and her spouse. Will start her on a nicotine patch and will start buproprion Discharge Plan: Home - Code Status/Comfort Care Code Status Assessed: No Physician Review: Patient Assessed, Agree with Above Assessment and Plan Critical Care: No Time Spent Managing Pts Care (In Minutes): 30
--- NOTE | 2018-10-14 11:05 | P.PN ---
Subjective Date of Service: 10/14/18 Primary Care Provider: Cathy Chief Complaint: complication of gastric Subjective: Improving (Patient has no pain currently, had been taking ice chips. ) Physical Examination - Vital Signs Temperature: 97.8 F Blood Pressure: 103/58 Pulse: 92 Respirations: 16 Pulse Ox (%): 95 - Physical Exam General: Alert, In no apparent distress, Cooperative Gastrointestinal: Other (soft, mild LUQ and epigastric TTP, ND, no rebound, no guarding.) Assessment And Plan - Current Problems (Diagnosis) (1) Intramural hematoma Current Visit: Yes Status: Acute (2) Postoperative epigastric abdominal pain Onset Date: 10/14/18 Current Visit: Yes Status: Acute Plan: - Recommend 4 weeks of TPN - Recommend NPO - Smoking Cessation Physician Review: Patient Assessed, Agree with Above Assessment and Plan
--- NOTE | 2018-10-14 11:21 | RAD REPORT ---
EXAM DESCRIPTION: CT - Abdomen Pelvis W Contrast - 10/12/2018 9:47 pm CLINICAL HISTORY: 48 years Female, ABD PAIN COMPARISON: None. TECHNIQUE: 5 mm axial images of the abdomen and pelvis were obtained with intravenous contrast. 5 mm reformatted coronal and sagittal images were obtained.. This exam was performed according to our departmental dose-optimization program, which includes autom ated exposure control, adjustment of the mA and/or kV according to patient size and/or use of iterati ve reconstruction technique. INTRAVENOUS CONTRAST: Not documented. Please refer to medical record. FINDINGS: Lung bases: Normal. Liver: Normal. Spleen: Normal. Pancreas: Normal. Gallbladder: Surgically absent. Right adrenal gland: Normal. Left adrenal gland: Normal. Right kidney: Normal. Left kidney: Normal. Retroperitoneal structures: There is severe diffuse atherosclerotic disease about the abdominal aorta and iliac arteries. Bowel survey: There is evidence of a gastric sleeve procedure. There is mural thickening with decreas ed attenuation along the left lateral proximal portion of the stomach. This is suspicious for intramu ral hematoma and measures 5.2 x 1.5 x 2.7 cm in maximal AP, transverse, and longitudinal dimensions r espectively.. There is a moderate amount residual stool within the rectosigmoid colon. The appendix is unremarkable. Urinary bladder: Normal. Uterus and adnexa: Normal. Prostate gland: Normal size. Peritoneal cavity: Normal. Mesentery structures: Normal. Abdominal wall: No hernia. Bony structures: No suspicious lesions. IMPRESSION: 1. Moderate-sized mural hematoma within the proximal and left lateral aspect of the stom ach. 2. Atherosclerotic disease. 3. Moderate amount residual stool within the rectosigmoid colon. Electronically signed by: Wally Langley MD 10/12/2018 9:56 PM PLATE PRINTER Due to temporary technical issues with the PACS/Fluency reporting system, reports are being signed by the in house radiologist as a courtesy to ensure prompt reporting. The interpreting radiologist is f ully responsible for the content of the report.
[2018-10-14] MEDS: buPROPion HCl 100 MG TAB PO SCH (13:53)
[2018-10-14] MEDS: ENOXAPARIN 40 MG/0.4 ML SQ SCH (16:32)
[2018-10-15] MEDS: BISMUTH SUBSALICYL 262MG/15ML-240 ML BTL PO SCH ×4 (02:40→20:00)
[2018-10-15] MEDS: PANTOPRAZOLE 40MG TABLET PO SCH (05:33)
[2018-10-15] MEDS: buPROPion HCl 100 MG TAB PO SCH (08:58)
[2018-10-15] MEDS: THIAMINE HCL 100 MG TABLET PO SCH (08:59)
[2018-10-15] MEDS: CALCIUM CARBONATE 500 MG TAB PO SCH (08:59)
[2018-10-15] MEDS: MULTIVITAMIN TAB PO SCH (08:59)
[2018-10-15] MEDS: LACTOBACILLUS/ACIDOPHILUS TAB PO SCH (08:59)
[2018-10-15] MEDS: NICOTINE 21 MG/PAT TD SCH (09:00)
--- NOTE | 2018-10-15 10:02 | RAD REPORT ---
EXAM DESCRIPTION: RAD - Chest Single View - 10/15/2018 1:44 am CLINICAL HISTORY: 8 years Female, picc line placement COMPARISON: None FINDINGS: Placement of left upper extremity PICC terminating in the distal SVC. No focal lung consolidation. No pleural effusion. No pneumothorax. Cardiac and mediastinal silhouette is unremarkable. No acute osseous abnormality. IMPRESSION: Appropriately placed left upper extremity PICC. No acute cardiopulmonary disease. Electronically signed by: Waldemar Hunt DO 10/15/2018 1:47 AM PERFORMANCE SPECIALIST Due to temporary technical issues with the PACS/Fluency reporting system, reports are being signed b y the in house radiologist as a courtesy to ensure prompt reporting. The interpreting radiologist is fully responsible for the content of the report.
[2018-10-15] MEDS: D5 0.45 NS 1,000 ML IV SCH ×2 (11:03→16:25)
--- NOTE | 2018-10-15 13:54 | P.PN ---
Subjective Date of Service: 10/15/18 Primary Care Provider: Cathy Chief Complaint: complication of gastric Subjective: No new changes Review of Systems 10-point ROS is otherwise unremarkable Physical Examination - Vital Signs Temperature: 98.6 F Blood Pressure: 107/54 Pulse: 79 Respirations: 16 Pulse Ox (%): 96 Assessment & Plan - Problems (Diagnosis) (1) Postoperative epigastric abdominal pain Onset Date: 10/14/18 Current Visit: Yes Status: Acute Plan: Have discussed the patient with Dr. Hays. She is high risk. He is worried about healing and protien. Therefore will order 4 weeks of tpn. The patient has been non compliant in the past. So it is likely she will have complications. Therefore will order this (2) Bariatric surgery status Onset Date: 10/14/18 Current Visit: Yes Status: Chronic Plan: Had this at the begining of Sep. She was on a solid diet. She denies, alcohol or caffeine. She has been smoking (3) Tobacco abuse counseling Onset Date: 10/14/18 Current Visit: Yes Status: Chronic Plan: Patient needs to stop cold turkey. If she continues to smoke. TPN or no will be ineffective. Have discussed with her and her spouse. Will start her on a nicotine patch and will start buproprion Physician Review: Patient Assessed, Agree with Above Assessment and Plan
[2018-10-15] MEDS: ENOXAPARIN 40 MG/0.4 ML SQ SCH (17:31)
--- NOTE | 2018-10-15 17:32 | P.PN ---
Subjective Date of Service: 10/15/18 Primary Care Provider: Cathy Chief Complaint: complication of gastric Subjective: Improving (Patient feels well, got PICC line. no abdominal pain, no complaints) Physical Examination - Vital Signs Temperature: 98.9 F Blood Pressure: 108/59 Pulse: 76 Respirations: 16 Pulse Ox (%): 97 - Physical Exam General: Alert, In no apparent distress, Cooperative Respiratory: Clear to auscultation bilaterally Gastrointestinal: Soft and benign, Non-distended, No tenderness, No masses, No rebound, No guarding Assessment And Plan - Current Problems (Diagnosis) (1) Intramural hematoma Current Visit: Yes Status: Acute (2) Postoperative epigastric abdominal pain Onset Date: 10/14/18 Current Visit: Yes Status: Acute Plan: - Recommend 4 weeks of TPN - Recommend NPO - Smoking Cessation - spoke with Dr. Bernadette Huertas yesterday 10-14-18 by phone and she confirmed the need for TPN and sips of liquids only for 3-4 weeks Physician Review: Patient Assessed, Agree with Above Assessment and Plan
[2018-10-15 20:37] VITALS: BP 143/72; TEMP 98.5
--- NOTE | 2018-10-16 08:53 | P.DS ---
Admission Date: 10/12/18 Discharge Date: 10/15/18 Primary Care Provider: Cathy Disposition: ROUTINE DISCHARGE Discharge Condition: GOOD Reason for Admission: complication of gastric - Problems (1) Postoperative epigastric abdominal pain Onset Date: 10/14/18 Status: Acute (2) Bariatric surgery status Onset Date: 10/14/18 Status: Chronic (3) Tobacco abuse counseling Onset Date: 10/14/18 Status: Chronic Brief History of Present Illness: Patient in my office. She recently went to [facility] and had a gastric sleeve. She has continued to smoke during this time approx 15 cig a day. She comes to the hospital with 3 days of epigastric pain. The patient had a ct which showed a hematoma. Bariatric surgeon in [place] suggested tpn for 3-4 weeks. She has not had any nausea or vomiting. Pain while moving approx 7/10. Hospital Course: Patient was admitted started on tpn. She had some trepidation about 4 weeks of tpn. However she has had signs of poor healing of the surgical site. Have eplained this could lead to complications of not proper healing. Such as bleeding and more commonly senior care dyspepsia. Will have her follow up frequently. Order routine blood work as well. Vital Signs/Physical Exam: Temp Pulse Resp BP Pulse Ox 98.5 F 84 16 143/72 H 100 10/15/18 20:00 10/15/18 20:00 10/15/18 20:00 10/15/18 20:00 10/15/18 20:00 General: Alert, In no apparent distress HEENT: Atraumatic, PERRLA, EOMI Neck: Supple, JVD not distended Respiratory: Clear to auscultation bilaterally, Normal air movement Cardiovascular: Regular rate/rhythm, Normal S1 S2 Gastrointestinal: Normal bowel sounds, No tenderness Musculoskeletal: No tenderness Integumentary: No rashes Neurological: Normal speech, Normal tone, Normal affect Lymphatics: No axilla or inguinal lymphadenopathy Laboratory Data at Discharge: WBC 10.8 K/uL (4.3-10.9) 10/13/18 05:15 Hgb 13.3 g/dL (12.0-15.0) 10/13/18 05:15 Hct 38.5 % (36.0-45.0) 10/13/18 05:15 Plt Count 211 K/uL (152-406) 10/13/18 05:15 PT 14.2 SECONDS (9.5-12.5) H 10/12/18 19:05 INR 1.21 10/12/18 19:05 Sodium 140 mmol/L (136-145) 10/13/18 05:15 Potassium 3.9 mmol/L (3.5-5.1) 10/13/18 05:15 BUN 8 mg/dL (7-18) 10/13/18 05:15 Creatinine 0.52 mg/dL (0.55-1.3) L 10/13/18 05:15 Glucose 126 mg/dL (74-106) H 10/13/18 05:15 Magnesium 2.2 mg/dL (1.8-2.4) 10/12/18 19:05 Total Bilirubin 0.5 mg/dL (0.2-1.0) 10/13/18 05:15 AST 12 U/L (15-37) L 10/13/18 05:15 ALT 21 U/L (12-78) 10/13/18 05:15 Alkaline Phosphatase 82 U/L (45-117) 10/13/18 05:15 Lipase 64 U/L (73-393) L 10/13/18 05:15 Home Medications: Calcium Citrate 200 mg PO DAILY 10/13/18 L.acidoph,Paracasei, B.lactis [Probiotic] 1 each PO DAILY 10/13/18 Omeprazole [Prilosec] 40 mg PO DAILY 10/13/18 Bupropion HCl [Bupropion Xl] 150 mg PO DAILY 90 Days #90 tab.er.24h 10/16/18 New Medications: Bupropion HCl [Bupropion Xl] 150 mg PO DAILY 90 Days #90 tab.er.24h Diet: npo for 4 weeks Activity: Ad priya Time spent managing pt's care (in minutes): 45
== END 2018-10-15 21:23 | disposition home or self-care (01) | DRG 920 ==
LOC: ER 18:33 → ERHOLD 23:24 → 4TH 10-13 00:05
PROVIDERS: ADMIT Internal Medicine; ATTEND Internal Medicine
PROC: 02HV33Z Insertion of Infusion Device into Superior Vena Cava, Percutaneous Approach (ICD-10-PCS; principal; 2018-10-14)
PROC: B548ZZA Ultrasonography of Superior Vena Cava, Guidance (ICD-10-PCS; 2018-10-14)
PROC: 3E0436Z Introduction of Nutritional Substance into Central Vein, Percutaneous Approach (ICD-10-PCS; 2018-10-14)
DX: K91.870 Postprocedural hematoma of a digestive system organ or structure following a digestive system procedure (principal); K95.89 Other complications of other bariatric procedure; Y83.8 Other surgical procedures as the cause of abnormal reaction of the patient, or of later complication, without mention of misadventure at the time of the procedure; Y92.019 Unspecified place in single-family (private) house as the place of occurrence of the external cause; R10.13 Epigastric pain; F17.210 Nicotine dependence, cigarettes, uncomplicated
CPT/HCPCS: 36415; 71045; 74177; 80048; 80076; 81003; 81015; 81025; 83605; 83690; 83735; 83880; 84484; 85025; 85610; 93005; 96374; 96375; 99285; J1650; J2270; J2405; Q9967

== ENCOUNTER 2018-10-23 08:51 | Day surgery (SDC) | payer BC ==
--- OUTSIDE RECORDS SUMMARY | 2018-10-23 09:34 | XMS REPORT ---
[...] End Status Dosage System Date Date ProAir [facility] [id number] 108 (90 Base) December 11, Active 2 puffs as RespiClick MCG/ACT 2018 needed Inhalation every 6 hrs Montelukast ND 83534680494 10 MG Orally December 20, Active 1 tablet Sodium Once a day 2017 in the evening Cymbalta ND 85520992585 30 MG Orally Active 1 capsule Once a day Levaquin ND 53318494128 250 MG Orally Active 2 tablets Once a day Flonase ND 04719780266 50 MCG/ACT Active 1 spray in Nasally Once a each day nostril Acetaminophen-C ND 86569594368 300-30 MG Orally Active 1 tablet odeine #3 every 6 hrs as needed atarax NDC 0 25mg Po QID prn Active 1 Neurontin ND 63720311969 100 MG Orally Active 1 capsule Twice a day Claritin-D 12 ND 44294207485 5-120 MG Orally December 11, January 10, Active 1 tablet Hour every 12 hrs 2017 2017 as needed Results No Known Results Summary Purpose eClinicalWorks Submission
--- OUTSIDE RECORDS SUMMARY | 2018-10-23 09:34 | XMS REPORT ---
[...] End Status Dosage System Date Date Neurontin [facility] 57662099848 100 MG Orally February Active 1 capsule Twice a day 2017 Sumatriptan ND 28649700904 50 MG Orally March 01, Active 1 tablet Succinate Once a day 2018 as needed Flonase ND 88136359378 50 MCG/ACT Active 1 spray in Nasally Once a each day nostril ProAir [facility] 42657403700 108 (90 Base) December 11, Active 2 puffs as RespiClick MCG/ACT 2018 needed Inhalation every 6 hrs Montelukast ND 23310291494 10 MG Orally December 20, Active 1 tablet Sodium Once a day 2018 in the evening Lyrica ND 04296281410 100 MG Orally March 01, Active 1 capsule Twice a day 2017 Acetaminophen-C [facility] 58230149661 300-30 MG Active 1 tablet odeine #3 Orally every 6 as needed hrs Levaquin ND 16532333671 250 MG Orally February Active 2 tablets Once a day 2017 atarax ND 0 25mg Po QID prn Inactive 1 Fiorinal [facility] 87529336474 50-325-40 MG March 01Jun 29, Active 1 capsule Orally every 4 2017 2017 as needed hrs Cymbalta [facility] 43631725201 30 MG Orally Active 1 capsule Once a day Results No Known Results Summary Purpose eClinicalWorks Submission
--- OUTSIDE RECORDS SUMMARY | 2018-10-23 09:34 | XMS REPORT ---
[...] End Status Dosage System Date Date Neurontin [facility] [address]-88 100 MG Orally Active 1 capsule Twice a day Acetaminophen- [facility] 91931188665 300-30 MG Active 1 tablet Codeine #3 Orally every 6 as needed hrs Cymbalta [facility] 14069254261 30 MG Orally Active 1 capsule Once a day Claritin-D 12 ND 77606801893 5-120 MG Orally December 11, January 10, Active 1 tablet Hour every 12 hrs 2017 2017 as needed ProAir [facility] 26394873277 108 (90 Base) December 11, Active 2 puffs as RespiClick MCG/ACT 2018 needed Inhalation every 6 hrs atarax NDC 0 25mg Po QID prn Active 1 Flonase ND 93363843237 50 MCG/ACT Active 1 spray in Nasally Once a each day nostril Levaquin ND 03099264349 250 MG Orally Active 2 tablets Once a day PredniSONE ND 21574360104 10 MG Orally December 11, December 16, Active 1 tablet bid 2017 2017 Results No Known Results Summary Purpose eClinicalWorks Submission
--- OUTSIDE RECORDS SUMMARY | 2018-10-23 09:34 | XMS REPORT ---
[...] End Status Dosage System Date Date ProAir [facility] 71705402416 108 (90 Base) December 11, Active 2 puffs as RespiClick MCG/ACT 2018 needed Inhalation every 6 hrs Cymbalta [facility] 59316161831 30 MG Orally Active 1 capsule Once a day Sumatriptan [facility] 89389798948 50 MG Orally March 01, Active 1 tablet Succinate Once a day 2018 as needed Fiorinal [facility] 57400890533 50-325-40 MG March 01, Jun 29, Active 1 capsule Orally every 4 2017 2018 as needed hrs Flonase [facility] 37572393574 50 MCG/ACT Active 1 spray in Nasally Once a each day nostril Acetaminophen-C [facility] 48581096223 300-30 MG Orally Active 1 tablet odeine #3 every 6 hrs as needed Lyrica [facility] 33350281280 100 MG Orally March 01, Active 1 capsule Twice a day 2017 Montelukast [facility] 37911906005 10 MG Orally December 20, Active 1 tablet Sodium Once a day 2018 in the evening Results No Known Results Summary Purpose eClinicalWorks Submission
--- OUTSIDE RECORDS SUMMARY | 2018-10-23 09:35 | XMS REPORT ---
[...] Status Dosage System Date Date Sumatriptan ND 53466461695 50 MG Orally March 01, Active 1 tablet as Succinate Once a day 2018 needed ProAir ND 32296686098 108 (90 Base) December 11, Active 2 puffs as RespiClick MCG/ACT 2018 needed Inhalation every 6 hrs Fluconazole NDC 27059586044 150 MG Orally Oct 02, Oct 03, Active 1 tablet Once a day 2018 2019 Lyrica ND 40034180663 100 Active TAKE 1 CAPSULE BY MOUTH TWICE DAILY Bariatric ND 92884243207 - Orally Sep 18, Active as directed Multivitamins/I 2019 cornelio Flonase ND 60958559712 50 MCG/ACT Active 1 spray in Nasally Once a each day nostril Cymbalta [facility] 33653671034 30 MG Orally Active 3 capsules Once a day Lyrica [facility] 95029723874 100 MG Orally March 01, Active 1 capsule Twice a day 2017 Acetaminophen-C [facility] 14557097927 300-30 MG Active 1 tablet as odeine #3 Orally every 6 needed hrs Montelukast [facility] 01869058458 10 MG Orally December 20, Active 1 tablet in Sodium Once a day 2017 the evening Results No Known Results Summary Purpose eClinicalWorks Submission
--- OUTSIDE RECORDS SUMMARY | 2018-10-23 09:35 | XMS REPORT ---
[...] Start End Date Status Dosage Date Cymbalta [facility] 91252910329 30 MG Orally Active 3 capsules Once a day Results No Known Results Summary Purpose eClinicalWorks Submission
--- OUTSIDE RECORDS SUMMARY | 2018-10-23 09:35 | XMS REPORT ---
:1970 Author Organization eClinicalWorks Care Team Providers Name Role Phone [email or web address] Provider Role Unavailable Allergies No Known Allergies [...] allergic rhinitis, J30.2 Active unspecified trigger Problem GERD (gastroesophageal reflux K21.9 Active disease) [...]
--- OUTSIDE RECORDS SUMMARY | 2018-10-23 09:50 | XMS REPORT ---
[...] End Status Dosage System Date Date Neurontin [facility] 13970669818 100 MG Orally February Active 1 capsule Twice a day 2017 Sumatriptan ND 12410614867 50 MG Orally March 01, Active 1 tablet Succinate Once a day 2018 as needed Flonase ND 28299952607 50 MCG/ACT Active 1 spray in Nasally Once a each day nostril ProAir [facility] 44419561581 108 (90 Base) December 11, Active 2 puffs as RespiClick MCG/ACT 2018 needed Inhalation every 6 hrs Montelukast ND 67082013600 10 MG Orally December 20, Active 1 tablet Sodium Once a day 2018 in the evening Lyrica ND 01036113739 100 MG Orally March 01, Active 1 capsule Twice a day 2017 Acetaminophen-C [facility] 81559709434 300-30 MG Active 1 tablet odeine #3 Orally every 6 as needed hrs Levaquin ND 55591497046 250 MG Orally February Active 2 tablets Once a day 2017 atarax ND 0 25mg Po QID prn Inactive 1 Fiorinal [facility] 04781167025 50-325-40 MG March 01Jun 29, Active 1 capsule Orally every 4 2017 2017 as needed hrs Cymbalta [facility] 02427162341 30 MG Orally Active 1 capsule Once a day Results No Known Results Summary Purpose eClinicalWorks Submission
--- OUTSIDE RECORDS SUMMARY | 2018-10-23 09:50 | XMS REPORT ---
[...] Status Dosage System Date Date Sumatriptan ND 85227341599 50 MG Orally March 01, Active 1 tablet as Succinate Once a day 2018 needed ProAir ND 99490629608 108 (90 Base) December 11, Active 2 puffs as RespiClick MCG/ACT 2018 needed Inhalation every 6 hrs Fluconazole NDC 91293116464 150 MG Orally Oct 02, Oct 03, Active 1 tablet Once a day 2018 2019 Lyrica ND 38540693838 100 Active TAKE 1 CAPSULE BY MOUTH TWICE DAILY Bariatric ND 78336062420 - Orally Sep 18, Active as directed Multivitamins/I 2019 cornelio Flonase ND 78926817413 50 MCG/ACT Active 1 spray in Nasally Once a each day nostril Cymbalta [facility] 68611531400 30 MG Orally Active 3 capsules Once a day Lyrica [facility] 11401527987 100 MG Orally March 01, Active 1 capsule Twice a day 2017 Acetaminophen-C [facility] 78270585078 300-30 MG Active 1 tablet as odeine #3 Orally every 6 needed hrs Montelukast [facility] 66309624359 10 MG Orally December 20, Active 1 tablet in Sodium Once a day 2017 the evening Results No Known Results Summary Purpose eClinicalWorks Submission
--- OUTSIDE RECORDS SUMMARY | 2018-10-23 09:50 | XMS REPORT ---
[...] Start End Date Status Dosage Date Cymbalta [facility] 66418285987 30 MG Orally Active 3 capsules Once a day Results No Known Results Summary Purpose eClinicalWorks Submission
--- OUTSIDE RECORDS SUMMARY | 2018-10-23 09:50 | XMS REPORT ---
[...] End Status Dosage System Date Date Neurontin [facility] [address]-65 100 MG Orally Active 1 capsule Twice a day Acetaminophen- [facility] 05459681580 300-30 MG Active 1 tablet Codeine #3 Orally every 6 as needed hrs Cymbalta [facility] 77111143608 30 MG Orally Active 1 capsule Once a day Claritin-D 12 ND 63197290117 5-120 MG Orally December 11, January 10, Active 1 tablet Hour every 12 hrs 2017 2017 as needed ProAir [facility] 12767992391 108 (90 Base) December 11, Active 2 puffs as RespiClick MCG/ACT 2018 needed Inhalation every 6 hrs atarax NDC 0 25mg Po QID prn Active 1 Flonase ND 44630749711 50 MCG/ACT Active 1 spray in Nasally Once a each day nostril Levaquin ND 31150711553 250 MG Orally Active 2 tablets Once a day PredniSONE ND 46361585976 10 MG Orally December 11, December 16, Active 1 tablet bid 2017 2017 Results No Known Results Summary Purpose eClinicalWorks Submission
--- OUTSIDE RECORDS SUMMARY | 2018-10-23 09:50 | XMS REPORT ---
[...] End Status Dosage System Date Date ProAir [facility] 75101741181 108 (90 Base) December 11, Active 2 puffs as RespiClick MCG/ACT 2018 needed Inhalation every 6 hrs Montelukast ND 99522824639 10 MG Orally December 20, Active 1 tablet Sodium Once a day 2017 in the evening Cymbalta ND 00620505329 30 MG Orally Active 1 capsule Once a day Levaquin ND 20590855941 250 MG Orally Active 2 tablets Once a day Flonase ND 27385905319 50 MCG/ACT Active 1 spray in Nasally Once a each day nostril Acetaminophen-C ND 54395353339 300-30 MG Orally Active 1 tablet odeine #3 every 6 hrs as needed atarax NDC 0 25mg Po QID prn Active 1 Neurontin ND 70885029374 100 MG Orally Active 1 capsule Twice a day Claritin-D 12 ND 47698409911 5-120 MG Orally December 11, January 10, Active 1 tablet Hour every 12 hrs 2017 2017 as needed Results No Known Results Summary Purpose eClinicalWorks Submission
--- OUTSIDE RECORDS SUMMARY | 2018-10-23 09:50 | XMS REPORT ---
[...] End Status Dosage System Date Date ProAir [facility] 47409111031 108 (90 Base) December 11, Active 2 puffs as RespiClick MCG/ACT 2018 needed Inhalation every 6 hrs Cymbalta [facility] 81782954724 30 MG Orally Active 1 capsule Once a day Sumatriptan [facility] 40805903098 50 MG Orally March 01, Active 1 tablet Succinate Once a day 2018 as needed Fiorinal [facility] 45496118844 50-325-40 MG March 01, Jun 29, Active 1 capsule Orally every 4 2017 2018 as needed hrs Flonase [facility] 54538374611 50 MCG/ACT Active 1 spray in Nasally Once a each day nostril Acetaminophen-C [facility] 92740062824 300-30 MG Orally Active 1 tablet odeine #3 every 6 hrs as needed Lyrica [facility] 64576931056 100 MG Orally March 01, Active 1 capsule Twice a day 2017 Montelukast [facility] 17085551371 10 MG Orally December 20, Active 1 tablet Sodium Once a day 2018 in the evening Results No Known Results Summary Purpose eClinicalWorks Submission
[2018-10-23 10:01] VITALS: BP 131/54; TEMP 97.8; O2SAT 100; BMI 32.8
--- OUTSIDE RECORDS SUMMARY | 2018-10-23 10:42 | XMS REPORT ---
[...] End Status Dosage System Date Date Neurontin [facility] 50837657255 100 MG Orally February Active 1 capsule Twice a day 2017 Sumatriptan ND 27824925699 50 MG Orally March 01, Active 1 tablet Succinate Once a day 2018 as needed Flonase ND 84480400901 50 MCG/ACT Active 1 spray in Nasally Once a each day nostril ProAir [facility] 22783712899 108 (90 Base) December 11, Active 2 puffs as RespiClick MCG/ACT 2018 needed Inhalation every 6 hrs Montelukast ND 50270204461 10 MG Orally December 20, Active 1 tablet Sodium Once a day 2018 in the evening Lyrica ND 01909151682 100 MG Orally March 01, Active 1 capsule Twice a day 2017 Acetaminophen-C [facility] 49125135532 300-30 MG Active 1 tablet odeine #3 Orally every 6 as needed hrs Levaquin ND 02905121768 250 MG Orally February Active 2 tablets Once a day 2017 atarax ND 0 25mg Po QID prn Inactive 1 Fiorinal [facility] 94369520088 50-325-40 MG March 01Jun 29, Active 1 capsule Orally every 4 2017 2017 as needed hrs Cymbalta [facility] 46950411041 30 MG Orally Active 1 capsule Once a day Results No Known Results Summary Purpose eClinicalWorks Submission
--- OUTSIDE RECORDS SUMMARY | 2018-10-23 10:42 | XMS REPORT ---
[...] End Status Dosage System Date Date Neurontin [facility] [address]-29 100 MG Orally Active 1 capsule Twice a day Acetaminophen- [facility] 84608266943 300-30 MG Active 1 tablet Codeine #3 Orally every 6 as needed hrs Cymbalta [facility] 00318074837 30 MG Orally Active 1 capsule Once a day Claritin-D 12 ND 69872480497 5-120 MG Orally December 11, January 10, Active 1 tablet Hour every 12 hrs 2017 2017 as needed ProAir [facility] 79977957319 108 (90 Base) December 11, Active 2 puffs as RespiClick MCG/ACT 2018 needed Inhalation every 6 hrs atarax NDC 0 25mg Po QID prn Active 1 Flonase ND 88874713995 50 MCG/ACT Active 1 spray in Nasally Once a each day nostril Levaquin ND 29429234637 250 MG Orally Active 2 tablets Once a day PredniSONE ND 90561166508 10 MG Orally December 11, December 16, Active 1 tablet bid 2017 2017 Results No Known Results Summary Purpose eClinicalWorks Submission
--- OUTSIDE RECORDS SUMMARY | 2018-10-23 10:42 | XMS REPORT ---
[...] Date ProAir [facility] 94408613130 108 (90 Base) December 11, Active 2 puffs as RespiClick MCG/ACT 2018 needed Inhalation every 6 hrs Cymbalta [facility] 61565128121 30 MG Orally Active 1 capsule Once a day Sumatriptan [facility] 77139020258 50 MG Orally March 01, Active 1 tablet Succinate Once a day 2018 as needed Fiorinal [facility] 96478046083 50-325-40 MG March 01, Jun 29, Active 1 capsule Orally every 4 2017 2018 as needed hrs Flonase [facility] 28237325547 50 MCG/ACT Active 1 spray in Nasally Once a each day nostril Acetaminophen-C [facility] 42465631245 300-30 MG Orally Active 1 tablet odeine #3 every 6 hrs as needed Lyrica [facility] 50495635752 100 MG Orally March 01, Active 1 capsule Twice a day 2017 Montelukast [facility] 54045639190 10 MG Orally December 20, Active 1 tablet Sodium Once a day 2018 in the evening Results No Known Results Summary Purpose eClinicalWorks Submission
--- OUTSIDE RECORDS SUMMARY | 2018-10-23 10:42 | XMS REPORT ---
[...] Status Dosage System Date Date ProAir [facility] 66606218901 108 (90 Base) December 11, Active 2 puffs as RespiClick MCG/ACT 2018 needed Inhalation every 6 hrs Montelukast ND 61290802505 10 MG Orally December 20, Active 1 tablet Sodium Once a day 2017 in the evening Cymbalta ND 83243692108 30 MG Orally Active 1 capsule Once a day Levaquin ND 61659321487 250 MG Orally Active 2 tablets Once a day Flonase ND 65914071568 50 MCG/ACT Active 1 spray in Nasally Once a each day nostril Acetaminophen-C ND 38427053392 300-30 MG Orally Active 1 tablet odeine #3 every 6 hrs as needed atarax NDC 0 25mg Po QID prn Active 1 Neurontin ND 53107601356 100 MG Orally Active 1 capsule Twice a day Claritin-D 12 ND 00069357373 5-120 MG Orally December 11, January 10, Active 1 tablet Hour every 12 hrs 2017 2017 as needed Results No Known Results Summary Purpose eClinicalWorks Submission
--- OUTSIDE RECORDS SUMMARY | 2018-10-23 10:42 | XMS REPORT ---
[...] Start End Date Status Dosage Date Cymbalta [facility] 70344955040 30 MG Orally Active 3 capsules Once a day Results No Known Results Summary Purpose eClinicalWorks Submission
--- OUTSIDE RECORDS SUMMARY | 2018-10-23 10:43 | XMS REPORT ---
[...] Status Dosage System Date Date Sumatriptan ND 16991951840 50 MG Orally March 01, Active 1 tablet as Succinate Once a day 2018 needed ProAir ND 17339431409 108 (90 Base) December 11, Active 2 puffs as RespiClick MCG/ACT 2018 needed Inhalation every 6 hrs Fluconazole NDC 17345882975 150 MG Orally Oct 02, Oct 03, Active 1 tablet Once a day 2018 2019 Lyrica ND 64538112328 100 Active TAKE 1 CAPSULE BY MOUTH TWICE DAILY Bariatric ND 88248876692 - Orally Sep 18, Active as directed Multivitamins/I 2019 cornelio Flonase ND 39137495557 50 MCG/ACT Active 1 spray in Nasally Once a each day nostril Cymbalta [facility] 31284645106 30 MG Orally Active 3 capsules Once a day Lyrica [facility] 35927006747 100 MG Orally March 01, Active 1 capsule Twice a day 2017 Acetaminophen-C [facility] 80310134251 300-30 MG Active 1 tablet as odeine #3 Orally every 6 needed hrs Montelukast [facility] 62738385546 10 MG Orally December 20, Active 1 tablet in Sodium Once a day 2017 the evening Results No Known Results Summary Purpose eClinicalWorks Submission
== END 2018-10-23 09:10 | disposition home or self-care (01) ==
LOC: DS 08:51 → EDSTATUS 09:00 → DS 09:10
PROVIDERS: ATTEND Surgery
DX: Z98.890 Other specified postprocedural states (principal)

== ENCOUNTER → 2018-10-29 | Day surgery (SDC) | payer BC ==
--- OUTSIDE RECORDS SUMMARY | 2018-10-29 12:44 | XMS REPORT ---
[...] Status Dosage System Date Date ProAir [facility] 61935881961 108 (90 Base) December 11, Active 2 puffs as RespiClick MCG/ACT 2018 needed Inhalation every 6 hrs Montelukast ND 26547957023 10 MG Orally December 20, Active 1 tablet Sodium Once a day 2017 in the evening Cymbalta ND 65827054927 30 MG Orally Active 1 capsule Once a day Levaquin ND 21870060897 250 MG Orally Active 2 tablets Once a day Flonase ND 44655729282 50 MCG/ACT Active 1 spray in Nasally Once a each day nostril Acetaminophen-C ND 93592992268 300-30 MG Orally Active 1 tablet odeine #3 every 6 hrs as needed atarax NDC 0 25mg Po QID prn Active 1 Neurontin ND 50699725029 100 MG Orally Active 1 capsule Twice a day Claritin-D 12 ND 37065775428 5-120 MG Orally December 11, January 10, Active 1 tablet Hour every 12 hrs 2017 2017 as needed Results No Known Results Summary Purpose eClinicalWorks Submission
--- OUTSIDE RECORDS SUMMARY | 2018-10-29 12:44 | XMS REPORT ---
[...] End Status Dosage System Date Date Neurontin [facility] [address]-78 100 MG Orally Active 1 capsule Twice a day Acetaminophen- [facility] 32344559841 300-30 MG Active 1 tablet Codeine #3 Orally every 6 as needed hrs Cymbalta [facility] 13971859022 30 MG Orally Active 1 capsule Once a day Claritin-D 12 ND 77546818175 5-120 MG Orally December 11, January 10, Active 1 tablet Hour every 12 hrs 2017 2017 as needed ProAir [facility] 09032032429 108 (90 Base) December 11, Active 2 puffs as RespiClick MCG/ACT 2018 needed Inhalation every 6 hrs atarax NDC 0 25mg Po QID prn Active 1 Flonase ND 53930527778 50 MCG/ACT Active 1 spray in Nasally Once a each day nostril Levaquin ND 78992985422 250 MG Orally Active 2 tablets Once a day PredniSONE ND 03810188803 10 MG Orally December 11, December 16, Active 1 tablet bid 2017 2017 Results No Known Results Summary Purpose eClinicalWorks Submission
--- OUTSIDE RECORDS SUMMARY | 2018-10-29 12:44 | XMS REPORT ---
[...] End Status Dosage System Date Date Neurontin [facility] 43677559688 100 MG Orally February Active 1 capsule Twice a day 2017 Sumatriptan ND 65156209267 50 MG Orally March 01, Active 1 tablet Succinate Once a day 2018 as needed Flonase ND 59763962229 50 MCG/ACT Active 1 spray in Nasally Once a each day nostril ProAir [facility] 14324640181 108 (90 Base) December 11, Active 2 puffs as RespiClick MCG/ACT 2018 needed Inhalation every 6 hrs Montelukast ND 39527213928 10 MG Orally December 20, Active 1 tablet Sodium Once a day 2018 in the evening Lyrica ND 69994409529 100 MG Orally March 01, Active 1 capsule Twice a day [address] [facility] 59390650080 300-30 MG Active 1 tablet odeine #3 Orally every 6 as needed hrs Levaquin ND 32508171944 250 MG Orally February Active 2 tablets Once a day 2017 atarax ND 0 25mg Po QID prn Inactive [address] [facility] 94106193228 50-325-40 MG March 01Jun 29, Active 1 capsule Orally every 4 2017 2017 as [address] [facility] 96825257942 30 MG Orally Active 1 capsule Once a day Results No Known Results Summary Purpose eClinicalWorks Submission
--- OUTSIDE RECORDS SUMMARY | 2018-10-29 12:45 | XMS REPORT ---
[...] End Date Status Dosage Date Cymbalta [facility] 84778370171 30 MG Orally Active 3 capsules Once a day Results No Known Results Summary Purpose eClinicalWorks Submission
--- OUTSIDE RECORDS SUMMARY | 2018-10-29 12:45 | XMS REPORT ---
[...] End Status Dosage System Date Date ProAir [facility] 47552823794 108 (90 Base) December 11, Active 2 puffs as RespiClick MCG/ACT 2018 needed Inhalation every 6 hrs Cymbalta [facility] 84912888180 30 MG Orally Active 1 capsule Once a day Sumatriptan [facility] 96682124757 50 MG Orally March 01, Active 1 tablet Succinate Once a day 2018 as needed Fiorinal [facility] 77596830584 50-325-40 MG March 01, Jun 29, Active 1 capsule Orally every 4 2017 2018 as needed hrs Flonase [facility] 97647132255 50 MCG/ACT Active 1 spray in Nasally Once a each day nostril Acetaminophen-C [facility] 32934467669 300-30 MG Orally Active 1 tablet odeine #3 every 6 hrs as needed Lyrica [facility] 82467950049 100 MG Orally March 01, Active 1 capsule Twice a day 2017 Montelukast [facility] 04768089839 10 MG Orally December 20, Active 1 tablet Sodium Once a day 2018 in the evening Results No Known Results Summary Purpose eClinicalWorks Submission
--- OUTSIDE RECORDS SUMMARY | 2018-10-29 12:45 | XMS REPORT ---
[...] Status Dosage System Date Date Sumatriptan ND 38723690233 50 MG Orally March 01, Active 1 tablet as Succinate Once a day 2018 needed ProAir ND 07548371412 108 (90 Base) December 11, Active 2 puffs as RespiClick MCG/ACT 2018 needed Inhalation every 6 hrs Fluconazole NDC 72811852078 150 MG Orally Oct 02, Oct 03, Active 1 tablet Once a day 2018 2019 Lyrica ND 11317158114 100 Active TAKE 1 CAPSULE BY MOUTH TWICE DAILY Bariatric ND 54756430448 - Orally Sep 18, Active as directed Multivitamins/I 2019 cornelio Flonase ND 54598349186 50 MCG/ACT Active 1 spray in Nasally Once a each day nostril Cymbalta [facility] 71829904531 30 MG Orally Active 3 capsules Once a day Lyrica [facility] 56754751667 100 MG Orally March 01, Active 1 capsule Twice a day 2017 Acetaminophen-C [facility] 22176842225 300-30 MG Active 1 tablet as odeine #3 Orally every 6 needed hrs Montelukast [facility] 54727553850 10 MG Orally December 20, Active 1 tablet in Sodium Once a day 2017 the evening Results No Known Results Summary Purpose eClinicalWorks Submission
[2018-10-29 13:35] LABS: Absolute Lymphocytes (CBC) 2.2 K/uL (0.7-4.9); Absolute Monocytes 0.5 K/uL (0.1-1.3); Absolute Neutrophil 3.3 K/uL (1.8-8.0); Basophils % 0.6 % (0-1.3); Eosinophils % 2.3 % (0-4.4); Hematocrit 40.3 % (36.0-45.0); Lymphocytes % 35.9 % (15.3-44.8); MPV 9.2 fL (7.6-11.3); Monocytes % 7.5 % (3.3-12.3); RBC Red Blood Cell Count 4.31 M/uL (3.86-4.86)
[2018-10-29 14:20] VITALS: BP 130/55; TEMP 97.2; O2SAT 98
[2018-10-29 15:42] LABS: ALT/SGPT 77 U/L (12-78); AST/SGOT 25 U/L (15-37); Albumin 3.5 g/dL (3.4-5.0); Alkaline Phosphatase 96 U/L (45-117); BUN Blood Urea Nitrogen 14 mg/dL (7-18); Bicarbonate 28 mmol/L (21-32); Bilirubin Total 0.4 mg/dL (0.2-1.0); Glucose Level 89 mg/dL (74-106); Magnesium 2.3 mg/dL (1.8-2.4); Phosphorus 4.1 mg/dL (2.5-4.9); Potassium 4.1 mmol/L (3.5-5.1); Protein, Total 7.5 g/dL (6.4-8.2); Sodium Level 141 mmol/L (136-145)
== END ==
LOC: DS 12:41
PROVIDERS: ATTEND Surgery
DX: Z98.890 Other specified postprocedural states (principal)
CPT/HCPCS: 36415; 80053; 82607; 83090; 83735; 83921; 84100; 85025

== ENCOUNTER 2018-11-07 08:49 | Day surgery (SDC) | payer BC ==
--- OUTSIDE RECORDS SUMMARY | 2018-11-07 09:01 | XMS REPORT ---
[...] ProAir [facility] 96872670817 108 (90 Base) December 11, Active 2 puffs as RespiClick MCG/ACT 2018 needed Inhalation every 6 hrs Cymbalta [facility] 63455275812 30 MG Orally Active 1 capsule Once a day Sumatriptan [facility] 53420389441 50 MG Orally March 01, Active 1 tablet Succinate Once a day 2018 as needed Fiorinal [facility] 54783057259 50-325-40 MG March 01, Jun 29, Active 1 capsule Orally every 4 2017 2018 as needed hrs Flonase [facility] 76690572095 50 MCG/ACT Active 1 spray in Nasally Once a each day nostril Acetaminophen-C [facility] 64445646734 300-30 MG Orally Active 1 tablet odeine #3 every 6 hrs as needed Lyrica [facility] 21622337188 100 MG Orally March 01, Active 1 capsule Twice a day 2017 Montelukast [facility] 39403461528 10 MG Orally December 20, Active 1 tablet Sodium Once a day 2018 in the evening Results No Known Results Summary Purpose eClinicalWorks Submission
--- OUTSIDE RECORDS SUMMARY | 2018-11-07 09:01 | XMS REPORT ---
[...] End Status Dosage System Date Date Neurontin [facility] [address]-18 100 MG Orally Active 1 capsule Twice a day Acetaminophen- [facility] 05339736653 300-30 MG Active 1 tablet Codeine #3 Orally every 6 as needed hrs Cymbalta [facility] 45581396784 30 MG Orally Active 1 capsule Once a day Claritin-D 12 ND 10848847622 5-120 MG Orally December 11, January 10, Active 1 tablet Hour every 12 hrs 2017 2017 as needed ProAir [facility] 36729219523 108 (90 Base) December 11, Active 2 puffs as RespiClick MCG/ACT 2018 needed Inhalation every 6 hrs atarax NDC 0 25mg Po QID prn Active 1 Flonase ND 57168206404 50 MCG/ACT Active 1 spray in Nasally Once a each day nostril Levaquin ND 64200659643 250 MG Orally Active 2 tablets Once a day PredniSONE ND 58508762937 10 MG Orally December 11, December 16, Active 1 tablet bid 2017 2017 Results No Known Results Summary Purpose eClinicalWorks Submission
--- OUTSIDE RECORDS SUMMARY | 2018-11-07 09:01 | XMS REPORT ---
[...] Start End Date Status Dosage Date Cymbalta [facility] 71458871610 30 MG Orally Active 3 capsules Once a day Results No Known Results Summary Purpose eClinicalWorks Submission
--- OUTSIDE RECORDS SUMMARY | 2018-11-07 09:01 | XMS REPORT ---
:1970 Author Organization eClinicalWorks Care Team Providers Name Role Phone NahundexEligio Provider Role Unavailable Allergies, Adverse Reactions, Alerts [...] allergic rhinitis, J30.2 Active unspecified trigger Assessment Follow up Z09 Active Problem GERD (gastroesophageal reflux K21.9 Active disease) Problem Mild intermittent asthma with acute J45.21 Active exacerbation Problem Loss of hair L65.9 Active Problem Unspecified abnormal finding in R89.9 Active specimens from other organs, systems and tissues Problem Hematuria R31.9 Active Problem Malaise and fatigue R53.81 Active Medications Medication Code Code Instructions Start End Status Dosage System Date Date Flonase [facility] 42887530811 50 MCG/ACT Active 1 spray in Nasally Once a each day nostril Cymbalta ND 06845903643 30 MG Orally Active 3 capsules Once a day Lyrica ND 70174168637 100 Active TAKE 1 CAPSULE BY MOUTH TWICE DAILY ProAir ND 62087157228 108 (90 Base) December 11, Active 2 puffs as RespiClick MCG/ACT 2018 needed Inhalation every 6 hrs Sumatriptan ND 91266182249 50 MG Orally March 01, Active 1 tablet as Succinate Once a day 2018 needed Lyrica ND 21579387444 100 MG Orally March 01, Active 1 capsule Twice a day 2018 Montelukast ND 07923913376 10 MG Orally December 20, Active 1 tablet in Sodium Once a day 2017 the evening Acetaminophen-C [facility] 65328315259 300-30 MG Active 1 tablet as odeine #3 Orally every 6 needed hrs Bariatric [facility] 48758085627 - Orally Sep 18, Active as directed Multivitamins/I 2018 cornelio Results No Known Results Summary Purpose eClinicalWorks Submission
--- OUTSIDE RECORDS SUMMARY | 2018-11-07 09:01 | XMS REPORT ---
[...] Status Dosage System Date Date Sumatriptan ND 20842499007 50 MG Orally March 01, Active 1 tablet as Succinate Once a day 2018 needed ProAir ND 91800252739 108 (90 Base) December 11, Active 2 puffs as RespiClick MCG/ACT 2018 needed Inhalation every 6 hrs Fluconazole NDC 57709436065 150 MG Orally Oct 02, Oct 03, Active 1 tablet Once a day 2018 2019 Lyrica ND 22733549421 100 Active TAKE 1 CAPSULE BY MOUTH TWICE DAILY Bariatric ND 04063874734 - Orally Sep 18, Active as directed Multivitamins/I 2019 cornelio Flonase ND 15296001071 50 MCG/ACT Active 1 spray in Nasally Once a each day nostril Cymbalta [facility] 54023724444 30 MG Orally Active 3 capsules Once a day Lyrica [facility] 73326869700 100 MG Orally March 01, Active 1 capsule Twice a day 2017 Acetaminophen-C [facility] 14565302138 300-30 MG Active 1 tablet as odeine #3 Orally every 6 needed hrs Montelukast [facility] 21945230536 10 MG Orally December 20, Active 1 tablet in Sodium Once a day 2017 the evening Results No Known Results Summary Purpose eClinicalWorks Submission
--- OUTSIDE RECORDS SUMMARY | 2018-11-07 09:01 | XMS REPORT ---
[...] End Status Dosage System Date Date Neurontin [facility] 51004617628 100 MG Orally February Active 1 capsule Twice a day 2017 Sumatriptan ND 58865381799 50 MG Orally March 01, Active 1 tablet Succinate Once a day 2018 as needed Flonase ND 69201258650 50 MCG/ACT Active 1 spray in Nasally Once a each day nostril ProAir [facility] 50518785714 108 (90 Base) December 11, Active 2 puffs as RespiClick MCG/ACT 2018 needed Inhalation every 6 hrs Montelukast ND 85801033426 10 MG Orally December 20, Active 1 tablet Sodium Once a day 2018 in the evening Lyrica ND 75282730168 100 MG Orally March 01, Active 1 capsule Twice a day 2017 Acetaminophen-C [facility] 49645302849 300-30 MG Active 1 tablet odeine #3 Orally every 6 as needed hrs Levaquin ND 00914137085 250 MG Orally February Active 2 tablets Once a day 2017 atarax ND 0 25mg Po QID prn Inactive 1 Fiorinal [facility] 57064900547 50-325-40 MG March 01Jun 29, Active 1 capsule Orally every 4 2017 2017 as needed hrs Cymbalta [facility] 73460696603 30 MG Orally Active 1 capsule Once a day Results No Known Results Summary Purpose eClinicalWorks Submission
--- OUTSIDE RECORDS SUMMARY | 2018-11-07 09:01 | XMS REPORT ---
[...] End Status Dosage System Date Date ProAir [facility] [id number] 108 (90 Base) December 11, Active 2 puffs as RespiClick MCG/ACT 2018 needed Inhalation every 6 hrs Montelukast ND 55650280412 10 MG Orally December 20, Active 1 tablet Sodium Once a day 2017 in the evening Cymbalta ND 30595680040 30 MG Orally Active 1 capsule Once a day Levaquin ND 89008412742 250 MG Orally Active 2 tablets Once a day Flonase ND 68036741089 50 MCG/ACT Active 1 spray in Nasally Once a each day nostril Acetaminophen-C ND 38318676162 300-30 MG Orally Active 1 tablet odeine #3 every 6 hrs as needed atarax NDC 0 25mg Po QID prn Active 1 Neurontin ND 43913179263 100 MG Orally Active 1 capsule Twice a day Claritin-D 12 ND 85260940476 5-120 MG Orally December 11, January 10, Active 1 tablet Hour every 12 hrs 2017 2017 as needed Results No Known Results Summary Purpose eClinicalWorks Submission
[2018-11-07 09:38] VITALS: BP 107/51; TEMP 97.6; O2SAT 99; BMI 25.7
== END 2018-11-07 09:30 | disposition home or self-care (01) ==
LOC: DS 08:49
PROVIDERS: ATTEND Surgery
DX: K91.870 Postprocedural hematoma of a digestive system organ or structure following a digestive system procedure (principal); Z98.84 Bariatric surgery status; F17.210 Nicotine dependence, cigarettes, uncomplicated